=== PATIENT | female | born 1965 | race Caucasian/White ===

== ENCOUNTER → 2019-10-17 | Outpatient (REF) | payer OTHER | LOC: M LAB REF 17:32 | PROVIDERS: ATTEND Dermatology | DX: D49.2 Neoplasm of unspecified behavior of bone, soft tissue, and skin (principal) ==

== ENCOUNTER → 2023-07-29 | Outpatient (REF) | payer OTHER | LOC: M SFHCDERM 17:23 | PROVIDERS: ATTEND Physician Assistant | DX: C44.212 Basal cell carcinoma of skin of right ear and external auricular canal (principal) ==